=== PATIENT | female | born 1975 | race African-American/Black ===

== ENCOUNTER 2020-11-18 04:36 | Day surgery (SDC) | payer OTHER ==
[2020-11-17 12:53] VITALS: BMI 23.9
[~2020-11-18 04:36] MED LIST: PHENAZOPYRIDINE HCL 100 MG TABLET (FP) PO ONE
[2020-11-18] MEDS ORDERED: PHENAZOPYRIDINE HCL 100 MG TABLET (FP) ONE ×2 (06:30→06:31)
[2020-11-18] MEDS ORDERED: ceFAZolin SODIUM 1 GM VIAL ONE (06:31)
[2020-11-18] MEDS ORDERED: DEXAMETHASONE SOD PHOSPHATE 4 MG/1 ML VIAL ONE (07:03)
[2020-11-18] MEDS ORDERED: LIDOCAINE HCL/PF 2% SDV 5ML VIAL ONE (07:03)
[2020-11-18] MEDS ORDERED: PROPOFOL 20 ML ONE (07:03)
[2020-11-18] MEDS ORDERED: ROCURONIUM BROMIDE 50 MG/5 ML SYRINGE ONE (07:03)
[2020-11-18] MEDS ORDERED: BUPIVACAINE LIPOSOME/PF (EXPAREL) 266 MG/20 ML VIAL ONE (07:08)
[2020-11-18] MEDS ORDERED: MIDAZOLAM HCL 2 MG/2 ML SINGLE DOSE VIAL ONE ×2 (07:21)
[2020-11-18] MEDS ORDERED: TRANEXAMIC ACID 1000 MG/10 ML VIAL ONE ×2 (07:52→07:56)
[2020-11-18] MEDS ORDERED: CEFAZOLIN 2 GM/D5W 2 GM/50 ML ML IVPB ONE (08:00)
[2020-11-18] MEDS ORDERED: ceFAZolin SODIUM 1 GM VIAL IVPB ONE (08:16)
[2020-11-18] MEDS ORDERED: GLYCOPYRROLATE 0.2 MG/1 ML VIAL ONE (09:19)
[2020-11-18] MEDS ORDERED: NEOSTIGMINE METHYLSULFATE 0.5 MG/ML - 10 ML MDV ONE (09:19)
[2020-11-18] MEDS ORDERED: oxyCODONE HCL 5 MG TABLET PO PRN (09:50)
[2020-11-18] MEDS ORDERED: BISACODYL 5 MG TABLET.DR (FP) PO PRN (09:50)
[2020-11-18] MEDS ORDERED: ONDANSETRON 4 MG/2 ML VIAL IVPUSH PRN (09:50)
[2020-11-18] MEDS ORDERED: DOCUSATE SODIUM 100 MG CAPSULE (FP) PO PRN (09:50)
[2020-11-18] MEDS ORDERED: CEFAZOLIN 1 GM/D5W 1 GM/50 ML BAG IVPB SCH (10:45)
[2020-11-18] MEDS ORDERED: LACTATED RINGERS SOLUTION 1,000 ML IV SCH (11:15)
[2020-11-18] MEDS: CEFAZOLIN 1 GM/D5W 1 GM/50 ML BAG IVPB SCH (15:41)
[2020-11-18] MEDS: ACETAMINOPHEN 325 MG TABLET (FP) PO PRN ×2 (15:41→20:14)
[2020-11-18] MEDS: SIMETHICONE 80 MG TAB.CHEW (FP) PO PRN ×2 (15:42→20:15)
[2020-11-18 18:39] LABS: HEMATOCRIT 33.1 % (32.4-45.2); HEMOGLOBIN 10.8 GM/dL (10.7-15.3); MCH 22.8 pg (25.7-33.7); MCHC 32.7 g/dl (32.0-36.0); MEAN CELL VOLUME 69.7 fl (80-96); MEAN PLT VOLUME 9.3 fl (7.5-11.1); PLATELET COUNT 350 K/MM3 (134-434); RBC 4.75 M/mm3 (3.60-5.2); WHITE BLOOD COUNT 17.4 K/mm3 (4.0-10.0)
[2020-11-18 19:03] LABS: CALCIUM 9.8 mg/dL (8.5-10.1)
[2020-11-18 19:04] LABS: BLOOD UREA NITROGEN 11.3 mg/dL (7-18)
[2020-11-18] MEDS: oxyCODONE HCL 5 MG TABLET PO PRN (20:13)
[2020-11-19] MEDS: CEFAZOLIN 1 GM/D5W 1 GM/50 ML BAG IVPB SCH ×2 (01:22→10:06)
[2020-11-19] MEDS: SIMETHICONE 80 MG TAB.CHEW (FP) PO PRN ×2 (07:53→15:49)
[2020-11-19] MEDS: ACETAMINOPHEN 325 MG TABLET (FP) PO PRN ×2 (07:54→15:49)
[2020-11-19] MEDS: oxyCODONE HCL 5 MG TABLET PO PRN (07:54)
[2020-11-19 09:04] LABS: HEMATOCRIT 30.2 % (32.4-45.2); MCHC 33.1 g/dl (32.0-36.0); MEAN CELL VOLUME 69.4 fl (80-96); MEAN PLT VOLUME 9.3 fl (7.5-11.1); PLATELET COUNT 326 K/MM3 (134-434); RBC 4.35 M/mm3 (3.60-5.2); RDW 19.4 % (11.6-15.6); WHITE BLOOD COUNT 16.1 K/mm3 (4.0-10.0)
[2020-11-19] MEDS ORDERED: ENOXAPARIN NA (PORCINE) 40 MG/0.4 ML DISP.SYRIN SQ SCH (10:00)
[2020-11-19 10:26] LABS: BLOOD UREA NITROGEN 9.8 mg/dL (7-18)
[2020-11-19 10:28] LABS: CREATININE 0.7 mg/dL (0.55-1.3)
[2020-11-19 10:29] LABS: CALCIUM 9.8 mg/dL (8.5-10.1)
[2020-11-19 12:57] VITALS: TEMP 98.7
[2020-11-19 14:56] VITALS: BP 101/70; PULSE 84
== END 2020-11-19 16:55 | disposition home or self-care (01) ==
LOC: JASUSAT 04:36 → J3W 12:08 → JASUSAT 11-19 16:55
PROVIDERS: ATTEND Obstetrics & Gynecology
PROC: 8E0W4CZ Robotic Assisted Procedure of Trunk Region, Percutaneous Endoscopic Approach (ICD-10-PCS; 2020-11-18)
PROC: 0UT94ZZ Resection of Uterus, Percutaneous Endoscopic Approach (ICD-10-PCS; principal; 2020-11-18 07:30)
PROC: 0UT74ZZ Resection of Bilateral Fallopian Tubes, Percutaneous Endoscopic Approach (ICD-10-PCS; 2020-11-18 07:30)
DX: D25.2 Subserosal leiomyoma of uterus (principal)
CPT/HCPCS: 58573; S2900; 36415; 80048; 81025; 85027; 86850; 86900; 86901; 88302-TC; 88307-TC; 94760